=== PATIENT | female | born 1945 | race African-American/Black ===

== ENCOUNTER 2021-02-16 17:57 | Inpatient (IN) | payer MEDICARE, SELFPAY ==
[2021-02-16] VITALS (9 sets, daily range): BP systolic 115–125; BP diastolic 79–86; PULSE 52–78; RESP 14–18; TEMP 36–36.6; O2SAT 100; BMI 23.6
--- NOTE | ~2021-02-16 | XR_ITS ---
EXAMINATION: XR chest ET placement INDICATION: Endotracheal tube placement TECHNIQUE: Portable AP chest at 1810 hours COMPARISON: None available FINDINGS: An endotracheal tube ends approximately 6.5 cm above the pillo. The nasogastric tube is fo llowed as far as the stomach. Its tip is beyond the inferior margin of the radiograph. The lungs are free of acute opacities. No pleural effusion or pneumothorax is identified. The cardiomediastinal dwayne houette is normal. IMPRESSION: 1. Endotracheal tube approximately 6.5 cm above the pillo. No acute cardiopulmonary abnormality. Reviewed, dictated and finalized at location A. IMPRESSION: 1. Endotracheal tube approximately 6.5 cm above the pillo. No acute cardiopulm onary abnormality.
--- NOTE | ~2021-02-16 | XR_ITS ---
EXAMINATION: XR chest 1V portable 02/19/2021 05:33 INDICATION: Shortness of breath PROCEDURE: AP portable chest COMPARISON: Comparison to multiple prior studies sequentially, with oldest reviewed study dated 02/16. FINDINGS: The lungs are clear. The lungs are hyperinflated which is consistent with, but not diagnost ic of chronic obstructive pulmonary disease. The cardiomediastinal silhouette is within normal limits. There are no pleural effusions. There is no pneumothorax suspected. Interval removal of endotracheal and NG tubes. IMPRESSION: 1: NO ACUTE CARDIOPULMONARY DISEASE. Reviewed, dictated and finalized at location A.
--- NOTE | ~2021-02-16 | XR_ITS ---
EXAMINATION: XR chest 1V portable DATE: 02/17/2021 05:42 INDICATION: Intubation TECHNIQUE: frontal view of the chest was obtained. COMPARISON: Chest radiograph dated 02/16/2021 FINDINGS: Endotracheal tube tip 4.3 cm above the pillo. Nasogastric tube extends below the left hemidiaphragm with distal tip collimated off the study. Persistent mild linear discoid atelectasis/scarring at the medial left lung base. Skinfold projects o fabiana the lateral left lung. No pulmonary edema, pleural effusion or pneumothorax. The cardiomediastina l silhouette is normal. IMPRESSION: 1. No acute cardiopulmonary disease. Reviewed, dictated and finalized at location A.
--- NOTE | ~2021-02-16 | XR_ITS ---
EXAMINATION: XR chest 1V portable DATE: 02/18/2021 05:51 INDICATION: Intubation TECHNIQUE: frontal view of the chest was obtained. COMPARISON: Chest radiograph dated 02/17/2021 FINDINGS: Endotracheal tube tip 4.6 cm above the pillo. Nasogastric tube extends below the left hemidiaphragm with distal tip collimated off the study. Slight increase in prominence of the pulmonary vasculature without mei pulmonary edema. Mild streak y atelectasis at the bilateral lower lung zones. No other airspace opacities, pleural effusion or pne umothorax. The cardiomediastinal silhouette is normal. IMPRESSION: 1. Pulmonary vascular congestion without pulmonary edema. Reviewed, dictated and finalized at location A.
--- NOTE | ~2021-02-16 | XR_ITS ---
EXAMINATION: XR abdomen NG/feed tube insert INDICATION: Nasogastric tube insertion TECHNIQUE: Portable AP KUB-NG at 1811 hours COMPARISON: None available FINDINGS: The tip of the nasogastric tube is in the stomach. The proximal side port is at the gastroe sophageal junction. The visualized lung bases are clear. The bowel gas pattern is nonspecific. IMPRESSION: 1. Tip of the nasogastric tube in the stomach with proximal side port at the gastroesophageal junctio n. Tube can be safely advanced 2 to 3 cm. Reviewed, dictated and finalized at location A. IMPRESSION: 1. Tip of the nasogastric tube in the stomach with proximal side port at the ga stroesophageal junction. Tube can be safely advanced 2 to 3 cm.
--- NOTE | ~2021-02-16 | XR_ITS ---
EXAMINATION: XR abdomen NG/feed tube rechec INDICATION: Nasogastric tube advancement TECHNIQUE: Portable AP KUB-NG at 2048 hours COMPARISON: 1811 hours FINDINGS: The nasogastric tube has been advanced. Both the tip and proximal side port are now within the stomach. There is otherwise no significant change. The lung bases are clear. IMPRESSION: 1. Nasogastric tube advanced in adequate position. Reviewed, dictated and finalized at location A.
--- NOTE | ~2021-02-16 | XR_ITS ---
EXAMINATION: XR chest ET placement INDICATION: Endotracheal tube advancement TECHNIQUE: Portable AP chest at 2047 hours COMPARISON: 1810 hours FINDINGS: The endotracheal tube has been advanced and ends approximately 3.5 cm above the pillo. The nasogastric tube is followed as far as the stomach. Its tip is beyond the inferior margin of the rad iograph. The lungs are free of acute opacities. There is no pleural effusion or pneumothorax. The car diomediastinal silhouette is normal. IMPRESSION: 1. Endotracheal tube advanced now ending approximately 3.5 cm above the pillo. Reviewed, dictated and finalized at location A.
--- NOTE | 2021-02-16 18:06 | PM.IMHP ---
H&P: HPI History of Present Illness Date/Time: 02/16/21 18:06 this is a 75-year-old female patient who was a direct admit [facility]. 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 The patient ate some strawberries today according to the report and is also on an KIMBERLY-inhibitor. The patient developed pulmonary edema. The patient was given Decadron, Benadryl, epinephrine, and Pepcid in the emergency room. Due to her angioedema the patient was intubated with a 7.0 ET tube at outside facility. She was sedated with etomidate, succinylcholine, Versed and sedated with propofol. The patient was initially set on a ventilator at tidal volume of 400 rate of 18 and PEEP of 5 with FiO2 of 50. When I spoke with the ED physician he stated that he was going to trend the FiO2 down to 30% and turned the rate down to 16. The ET tube was noted to be 24 at the lip. Ventilator mode was assist control. The patient complained of swelling to her tongue upon awakening this morning she denied any shortness of breath and was having a small amount of drooling patient reports that she ate strawberries last night which is listed as 1 of her allergies. She also takes lisinopril. Last dose of lisinopril was last night. The patient had been intubated at outside facility due to the amount of edema to her lips and tongue and possible airway compromise. I received report from Dr. Newsome at [facility]. Patient had an EKG that was normal sinus rhythm. The patient is being admitted to inpatient services into ICU. The city mail carrier had previously been notified by the ER physician at the outside facility. The date of service is 02/16/2021. 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 The patient is a full code. She is and listed as unemployed Smoking status: Unknown if ever smoked Alcohol intake: unknown Substance use: unknown Substance use type: unknown Other substance usage details: sedated on ventilator on arrival to hospital Spiritual care concerns: No Meds Vital Signs Vital Signs - 24 hr 02/16/21 17:56 Pulse Rate 62 Pulse Oximetry 100 Exam Const: General: cooperative, comfortable, no acute distress, alert, awake (She was initially awake when she came to ICU) and Physically active Nutritional Appearance: average body habitus Orientation/consciousness: oriented to person, oriented to place, oriented to time, patient oriented x3 and Other orientation findings (Patient was initially awake when she came to ICU intubated ) Limitations: no limitations HENMT: Head: normal to inspection, No palpable skull fracture present and normocephalic Ears: hearing grossly normal bilaterally and external ears normal General nose exam: Normal external nose present Eyes: Other: Right eye surgically extracted area healed well Neck: Neck: normal visual inspection and supple Chest: Chest palpation & inspection: normal inspection of the chest Resp: Effort & Inspection: normal respiratory effort Auscultation: clear to auscultation bilaterally Percussion: percussion normal Cardio: Palpation: normal PMI Rate: regular rate Rhythm: regular rhythm Heart sounds: S1 normal heart sound present and S2 normal heart soun
--- NOTE | 2021-02-16 18:38 | PC.NURSE ---
This patient, Charisse Magana, was admitted to Intensive Care Unit-3. Patient/family oriented to hospital policies and general routines including ID bracelet, bed and alarms, visiting hours, pain management, procedures, bathroom and other care routines, personal items, smoking policy, room service/diet, and visiting hours. Information on how to activate the Rapid Response Team has been discussed. Patient/Family are encouraged to report perceived risks to care and to ask questions if they do not understand what they are told or what they should do.
[2021-02-16 18:45] LABS: Alveolar/Arterial O2 Gradient 43.8 mmHg; Base Excess ABG -5.6 mEq/l (+/-2.0); Device VENTILATOR; Fractional Inspired Oxygen 30 %; Modified Allen's Test Pass; Oxygen Content ABG 16.6 %vol (16.0-22.0); Oxygen Saturation ABG 98.5 % (95.0-100.0); Oxyhemoglobin 96.8 % THb (90.0-100.0); PO2 ABG 130.2 mmHg (80.0-100.0); PO2 FiO2 Ratio Arterial Blood 4.34 %; Site Drawn RIGHT RADIAL; pH ABG 7.364 (7.350-7.450)
[2021-02-16 18:46] LABS: Arterial Blood Gas PEEP 5 cmH2O; Arterial Blood Gas Tidal Volume 400 ml; Arterial Blood Gas Vent Mode CMV; Arterial Blood Gas Ventilator rate 14 /MIN
[2021-02-16 19:18] LABS: Lactic Acid Reflex 1.5 mmol/L (0.7-2.1); Magnesium 1.6 mg/dL (1.6-2.3)
[2021-02-16 19:20] LABS: Hemoglobin A1C 5.4 % (<5.7)
[2021-02-16 19:42] LABS: Add Urine Microscopic? YES; Appearance Urine Clear (Clear); Bilirubin Urine Negative (Negative); Blood Urine 3+ (Negative); Color Urine Yellow (Yellow); Glucose Urine UA Negative (Negative); Ketones Urine Negative (Negative); Leukocyte Esterase Ur Negative LEU/UL (Negative); Mucus Urine Rare /lpf; Nitrate Urine Negative (Negative); Protein Urine 1+ mg/dL (Negative); RBC Urine 21-50 /hpf (0-2); Specific Grav Ur 1.014 (1.001-1.035); Squamous Epithelial Cell Urine Rare /hpf (Few); Urobilinogen Urine Negative mg/dL (<2.0); WBC Urine 0-3 /hpf
[2021-02-16] MEDS: PROPOFOL IV EMULSION 100 ML 17.4 MG IV CONT (20:28)
[2021-02-16] MEDS: SODIUM CHLORIDE 0.9% IV 1,000 ML 100 ML IV CONT (20:28)
[2021-02-16] MEDS: MINERAL OIL/WHITE PETROLATUM OINTMENT 1 APPLIC EACH EYE (20:32)
[2021-02-16] MEDS: FAMOTIDINE 20 MG/2 ML VIAL IV PUSH (21:57)
[2021-02-16 23:59] LABS: Glucose Point of Care 95 mg/dl (65-105)
[2021-02-17] VITALS (30 sets, daily range): BP systolic 108–156; BP diastolic 69–90; PULSE 45–113; RESP 12–17; TEMP 35.9–37.2; O2SAT 98–100; BMI 23.1
[2021-02-17] MEDS: PROPOFOL IV EMULSION 100 ML 10.88 MG IV CONT (03:20)
[2021-02-17 04:32] LABS: Alveolar/Arterial O2 Gradient 51.2 mmHg; Base Excess ABG -5.3 mEq/l (+/-2.0); Fractional Inspired Oxygen 30 %; HCO3 ABG 18.6 mEq/l (22.0-26.0); Oxygen Content ABG 17.3 %vol (16.0-22.0); Oxygen Saturation ABG 98.5 % (95.0-100.0); Oxyhemoglobin 97.1 % THb (90.0-100.0); PCO2 ABG 31.2 mmHg (35.0-45.0); Total Hemoglobin 12.5 g/dL (12.0-18.0); pH ABG 7.393 (7.350-7.450)
[2021-02-17 04:34] LABS: Arterial Blood Gas Ventilator rate 14 /MIN; Device VENTILATOR; Modified Allen's Test Pass; Site Drawn LEFT RADIAL
[2021-02-17 04:35] LABS: Arterial Blood Gas PEEP 5 cmH2O; Arterial Blood Gas Tidal Volume 400 ml; Arterial Blood Gas Vent Mode CMV
[2021-02-17 04:54] LABS: Basophils Percent Auto 0.1 % (0.2-1.2); Hematocrit 40.1 % (37.0-47.0); Hemoglobin 12.2 g/dL (12.0-15.0); Immature Granulocyte Absolute 0.05 K/mm3 (0.00-0.031); Immature Granulocyte Percent A 0.7 % (0-0.5); Lymphocytes Absolute Auto 0.81 K/mm3 (0.9-3.2); Lymphocytes Percent Auto 10.9 % (18.3-44.2); Mean Corpuscular HGB Conc 30.4 g/dl (32-36); Mean Corpuscular Hemoglobin 30.4 pg (26-34); Mean Platelet Volume 10.5 fl (7.4-10.4); Monocytes Absolute Auto 0.3 K/mm3 (0.1-0.6); Neutrophils Absolute Auto 6.3 K/mm3 (1.3-6.7); Neutrophils Percent Auto 84.3 % (45.5-73.1); Platelet Count Result 309 k/mm3 (150-375); Red Blood Count 4.01 M/mm3 (4.2-5.4); Red Cell Distribution Width 12.8 % (11.5-14.5); White Blood Count 7.4 K/mm3 (4.5-10.0)
[2021-02-17 05:16] LABS: Alanine Aminotransferase 13 U/L (4-35); Albumin Level 4.4 g/dL (3.5-5.1); Alkaline Phosphatase 61 U/L (38-126); Anion Gap 13 mmol/L (8-16); Aspartate Amino Transferase 31 U/L (14-36); Bilirubin,Total 0.4 mg/dL (0.2-1.3); Blood Urea Nitrogen 11 mg/dL (7-17); Calcium 9.3 mg/dL (8.4-10.2); Carbon Dioxide 17 mmol/L (22-30); Chloride 114 mmol/L (98-107); Estimated CRCL calculation 54 ml/min; Estimated Glomerular Filt Rate > 60; Glucose 93 mg/dL (65-110); Magnesium 1.7 mg/dL (1.6-2.3); Potassium 4.3 mmol/L (3.4-5.0); Sodium 144 mmol/L (137-145)
[2021-02-17] MEDS: methylPREDNISolone SOD SUCC 125 MG VIAL 80 MG IV PUSH ×2 (05:21)
[2021-02-17] MEDS: SODIUM CHLORIDE 0.9% IV 1,000 ML 100 ML IV CONT (06:39)
[2021-02-17] MEDS: diphenhydrAMINE HCl INJ 50 MG/ML VIAL 25 MG IV PUSH ×5 (08:20→23:33)
[2021-02-17] MEDS: FAMOTIDINE 20 MG/2 ML VIAL IV PUSH ×2 (08:21→20:53)
[2021-02-17] MEDS: ENOXAPARIN 40 MG/0.4 ML SYRINGE SUB-Q (08:21)
[2021-02-17] MEDS: MINERAL OIL/WHITE PETROLATUM OINTMENT 1 APPLIC EACH EYE ×2 (08:21→20:54)
[2021-02-17] MEDS: hydrALAZINE HCL 20 MG/ML VIAL 10 MG IV PUSH (09:18)
--- NOTE | 2021-02-17 09:18 | WPDCNINT ---
Assessment and Plan Assessment and plan (1) Angioedema: Code(s): T78.3XXA - Angioneurotic edema, initial encounter Status: Acute Assessment and Plan: Angioedema likely related to strawberries and/or lisinopril. -patient was intubated for airway protection at the outside hospital, [facility]. -remains on 5 of PEEP and 30% FiO2 on CMV mode of ventilation -patient does have a cuff leak but lips are still swollen -the tongue does not seem to be swollen but it lies within the teeth -will decrease Solu-Medrol to 60 mg IV q.6 hours -continue Pepcid, and will schedule Benadryl - (2) DM2 (diabetes mellitus, type 2): Code(s): E11.9 - Type 2 diabetes mellitus without complications Status: Chronic Assessment and Plan: Sliding scale insulin Accu-Cheks (3) Hypertension: Code(s): I10 - Essential (primary) hypertension Status: Chronic Assessment and Plan: Blood pressures are stable, p.r.n. hydralazine (4) Hyperlipidemia: Code(s): E78.5 - Hyperlipidemia, unspecified Status: Chronic Assessment and Plan: Will restart simvastatin once extubated (5) DVT prophylaxis: Code(s): Z29.9 - Encounter for prophylactic measures, unspecified Status: Acute Assessment and Plan: DVT prophylaxis: Lovenox SQ Additional Plan Code status: Full code Critical care time spent: 44 minutes This dictation may have been done utilizing a voice recognition system. Attempts have been made to correct errors. However, there may be uncorrected grammatical, spelling, and recognition errors present. Due to a high probability of clinically significant, life threatening deterioration, the patient required my highest level of preparedness to intervene emergently and I personally spent this critical care time directly and personally managing the patient. This critical care time included obtaining a history; examining the patient; pulse oximetry; ordering and review of studies; arranging urgent treatment with development of a management plan; evaluation of patient's response to treatment; frequent reassessment; and discussions with other providers. It was exclusive of separately billable procedures and treating other patients and teaching time. 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 At the outside hospital she stated that she ate some strawberries the night prior to admission, patient is also on lisinopril for her hypertension which she has been taking regularly. In the ER at the outside hospital patient was noted to have swollen lips and tongue, she was given Benadryl, epinephrine, Pepcid and Decadron despite which did done continued to show swell, patient was intubated for airway protection after discussion with the family and patient. Patient was on peep of 5 and 30% FiO2, chest x-ray was clear, hemodynamically patient was stable. According the ER physician at the outside hospital the intubation was uneventful. Patient was transferred to the ICU for further management Patient seen examined the ICU this morning, is intubated, on CMV mode of ventilation, peep of 5, 30% FiO2. Patient is on propofol, opens her eyes to name, follows simple commands in all extremities. Lips are swollen but done does not seem to be swollen as is as well placed within the teeth. Patient does have a cuff leak. Urine ou
[2021-02-17] MEDS: LACTATED RINGERS 1,000 ML 75 ML IV CONT ×2 (10:03→23:28)
--- NOTE | 2021-02-17 10:47 | PCDIET ---
MD order for Glucerna 1.2 tube feedings. Recommended goal rate of 40mL/hr which will provide 1056kcal (1343kcal with Propofol at current rate), 52g protein and 708mL free water over 22 hours/day. Suggest 30mL water flush every 4 hours. Verbal order obtained.
[2021-02-17] MEDS: PROPOFOL IV EMULSION 100 ML 13.05 MG IV CONT (11:07)
[2021-02-17] MEDS: methylPREDNISolone SOD SUCC 125 MG VIAL 60 MG IV PUSH ×3 (12:42→23:33)
[2021-02-17 12:47] LABS: Glucose Point of Care 127 mg/dl (65-105)
[2021-02-17] MEDS: PROPOFOL IV EMULSION 100 ML 15.23 MG IV CONT (17:22)
[2021-02-17 17:30] LABS: Glucose Point of Care 170 mg/dl (65-105)
[2021-02-18] VITALS (27 sets, daily range): BP systolic 130–152; BP diastolic 70–83; PULSE 39–66; RESP 10–18; TEMP 36.5–37; O2SAT 95–100
[2021-02-18] LABS: Glucose Point of Care 162 mg/dl (65-105)
[2021-02-18] MEDS: PROPOFOL IV EMULSION 100 ML 15.23 MG IV CONT (00:44)
[2021-02-18] MEDS: diphenhydrAMINE HCl INJ 50 MG/ML VIAL 25 MG IV PUSH ×2 (04:04→08:42)
[2021-02-18 04:26] LABS: Hematocrit 32.4 % (37.0-47.0); Hemoglobin 10.6 g/dL (12.0-15.0); Mean Corpuscular HGB Conc 32.7 g/dl (32-36); Mean Corpuscular Hemoglobin 30.3 pg (26-34); Mean Corpuscular Volume 92.6 fl (80-100); Mean Platelet Volume 10.7 fl (7.4-10.4); Platelet Count Result 291 k/mm3 (150-375); Red Cell Distribution Width 13.1 % (11.5-14.5); White Blood Count 7.6 K/mm3 (4.5-10.0)
[2021-02-18 04:55] LABS: Alveolar/Arterial O2 Gradient 52.4 mmHg; Base Excess ABG -3.3 mEq/l (+/-2.0); Carboxyhemoglobin 0.2 % THb (0-2.0); Fractional Inspired Oxygen 30 %; HCO3 ABG 18.3 mEq/l (22.0-26.0); Methemoglobin ABG 0.4 %THb (0-1.5); Oxygen Content ABG 15.8 %vol (16.0-22.0); Oxyhemoglobin 97.1 % THb (90.0-100.0); PO2 ABG 133.9 mmHg (80.0-100.0); PO2 FiO2 Ratio Arterial Blood 4.46 %; Reduced Hemoglobin 2.3 %THb (0-5.0); Total Hemoglobin 11.4 g/dL (12.0-18.0)
[2021-02-18 04:57] LABS: Arterial Blood Gas PEEP 5 cmH2O; Arterial Blood Gas Vent Mode ASV; Device VENTILATOR; Modified Allen's Test Pass; PCO2 ABG 23.5 mmHg (35.0-45.0); Site Drawn RIGHT RADIAL; pH ABG 7.509 (7.350-7.450)
[2021-02-18 04:58] LABS: Alanine Aminotransferase 11 U/L (4-35); Albumin Level 3.4 g/dL (3.5-5.1); Alkaline Phosphatase 53 U/L (38-126); Anion Gap 8 mmol/L (8-16); Aspartate Amino Transferase 21 U/L (14-36); Bilirubin,Total 0.3 mg/dL (0.2-1.3); Blood Urea Nitrogen 23 mg/dL (7-17); Calcium 8.8 mg/dL (8.4-10.2); Carbon Dioxide 19 mmol/L (22-30); Chloride 113 mmol/L (98-107); Estimated CRCL calculation 44 ml/min; Estimated Glomerular Filt Rate > 60; Glucose 180 mg/dL (65-110); Magnesium 1.8 mg/dL (1.6-2.3); Phosphorus 3.2 mg/dL (2.5-4.5); Potassium 3.7 mmol/L (3.4-5.0); Sodium 140 mmol/L (137-145)
[2021-02-18] MEDS: methylPREDNISolone SOD SUCC 125 MG VIAL 60 MG IV PUSH ×3 (05:41→19:27)
[2021-02-18] MEDS: PROPOFOL IV EMULSION 100 ML 8.7 MG IV CONT (06:54)
[2021-02-18] MEDS: FUROSEMIDE INJ 40 MG/4 ML VIAL IV PUSH (08:42)
[2021-02-18] MEDS: FAMOTIDINE 20 MG/2 ML VIAL IV PUSH ×2 (08:43→21:31)
[2021-02-18] MEDS: ENOXAPARIN 40 MG/0.4 ML SYRINGE SUB-Q (08:43)
[2021-02-18] MEDS: MINERAL OIL/WHITE PETROLATUM OINTMENT 1 APPLIC EACH EYE (08:45)
[2021-02-18] MEDS: LORATADINE 10 MG TABLET PO (11:19)
--- NOTE | 2021-02-18 11:21 | WPDINTPN ---
Progress Note: A&P Assessment and Plan (1) Angioedema: Code(s): T78.3XXA - Angioneurotic edema, initial encounter Status: Acute Assessment and Plan: Angioedema likely related to strawberries and/or lisinopril. -patient was intubated for airway protection at the outside hospital, [facility]. -remains on 5 of PEEP and 30% FiO2 ASV mode of ventilation -patient does have a cuff leak -the tongue does not seem to be swollen but it lies within the teeth -will decrease Solu-Medrol -continue Pepcid, discontinue Benadryl and added loratadine -discontinue propofol, place patient on SBT and evaluate for extubation (2) DM2 (diabetes mellitus, type 2): Code(s): E11.9 - Type 2 diabetes mellitus without complications Status: Chronic Assessment and Plan: Sliding scale insulin Accu-Cheks (3) Hypertension: Code(s): I10 - Essential (primary) hypertension Status: Chronic Assessment and Plan: Blood pressures are stable, p.r.n. hydralazine (4) Hyperlipidemia: Code(s): E78.5 - Hyperlipidemia, unspecified Status: Chronic Assessment and Plan: Will restart simvastatin once extubated (5) DVT prophylaxis: Code(s): Z29.9 - Encounter for prophylactic measures, unspecified Status: Acute Assessment and Plan: DVT prophylaxis: Lovenox SQ Additional Plan Code status: Full code Critical care time spent: 33 minutes This dictation may have been done utilizing a voice recognition system. Attempts have been made to correct errors. However, there may be uncorrected grammatical, spelling, and recognition errors present. Due to a high probability of clinically significant, life threatening deterioration, the patient required my highest level of preparedness to intervene emergently and I personally spent this critical care time directly and personally managing the patient. This critical care time included obtaining a history; examining the patient; pulse oximetry; ordering and review of studies; arranging urgent treatment with development of a management plan; evaluation of patient's response to treatment; frequent reassessment; and discussions with other providers. It was exclusive of separately billable procedures and treating other patients and teaching time. Please see Assessment and Plan section and the rest of the note for further information on patient assessment and treatment Subjective Date/time seen: 02/18/21 11:21 Interval history: Reason for consult: ANGIOEDEMA, ACUTE RESPIRATORY FAILURE, intubated on 02/16/2021 at the outside hospital 02/18/2021: Pt remains intubated on ASV 30% fio2, peep 5. Pt on propofol, awake, alert and follows commands. tolertaing tube feeds. hemodynamically stable. Pt has a cuff leak. Lips still swollen, done is within the Teeth and cannot be evaluated but does not look swollen Review of Systems Review of Systems: ROS unobtainable: Yes unobtainable due to endotracheal tube Exam Const: General: comfortable and no acute distress HENMT: Other: ETT in place Lips are swollen but tongue does not seem to be swollen Eyes: Sclera: sclerae normal Pupils: Equal, round and reactive pupils present Neck: Neck: supple Thyroid: thyroid normal Lymphatic: lymphadenopathy not noted Resp: Effort & Inspection: normal respiratory effort Auscultation: clear to auscultation bilaterally Cardio: Rate: regular rate Rhythm: regular rhythm GI: Inspection: non-distended GI Palp: Yes Soft to palpation and No Tenderness to palpation present (GI) Auscultation: normal bowel sounds : Other: Kenyon catheter in place Urinary Catheter: Urinary Catheter: patent and draining and urine clear Skin: General skin exam: normal color and no rashes or lesions noted Neuro: Cranial nerves: Yes Equal, round and reactive pupils present Other: Patient is intubated, sedated with propofol, opens her eyes to name, nods to questions, follows simple command
[2021-02-18 11:33] LABS: Glucose Point of Care 130 mg/dl (65-105)
--- NOTE | 2021-02-18 12:42 | PCDIET ---
Nutrition Follow-Up Complete: Nutrition Diagnosis: Inadequate oral intake related to oral intubation as evidenced by NPO diet. Nutrition Goal: Patient to meet estimated nutritional needs. Goal in progress. Tube feedings on hold for anticipated extubation. If unable to extubate, recommend increasing to 50mL/hr Glucerna 1.2 since patient is no longer on Propofol. Last recorded weight is 71.8 kg which is stable. Bowel Motility: No documented BM as of yet. Labs Reviewed: RBC (3.50), Hgb (10.6), Hct (32.4), Glu (180), BUN (23), Cl (113), Alb (3.4) Meds Noted: Pepcid, Apresoline, Solu Medrol Additional Notes: No documented skin breakdown. Follow up every 3 days. Follow daily in ICU rounds.
[2021-02-18 13:39] LABS: Alveolar/Arterial O2 Gradient 74.4 mmHg; Base Excess ABG -0.2 mEq/l (+/-2.0); Fractional Inspired Oxygen 30 %; HCO3 ABG 20.6 mEq/l (22.0-26.0); Oxygen Content ABG 17.3 %vol (16.0-22.0); Oxygen Saturation ABG 98.6 % (95.0-100.0); PO2 ABG 111.3 mmHg (80.0-100.0); PO2 FiO2 Ratio Arterial Blood 3.71 %; Total Hemoglobin 12.6 g/dL (12.0-18.0)
[2021-02-18 13:41] LABS: Device VENTILATOR; Modified Allen's Test Pass; Site Drawn RIGHT RADIAL; pH ABG 7.552 (7.350-7.450)
[2021-02-18 13:42] LABS: Arterial Blood Gas PEEP 5 cmH2O; Arterial Blood Gas Pressure Support 8 cmH2O; Arterial Blood Gas Vent Mode SPONTANEOUS
[2021-02-18 18:26] LABS: Glucose Point of Care 130 mg/dl (65-105)
[2021-02-19] VITALS (14 sets, daily range): BP systolic 124–149; BP diastolic 67–82; PULSE 38–66; RESP 14–16; TEMP 36.2–36.6; O2SAT 96–100
[2021-02-19] MEDS: methylPREDNISolone SOD SUCC 125 MG VIAL 60 MG IV PUSH ×2 (00:21→05:49)
[2021-02-19 00:27] LABS: Glucose Point of Care 134 mg/dl (65-105)
[2021-02-19 04:52] LABS: Hematocrit 32.4 % (37.0-47.0); Hemoglobin 10.6 g/dL (12.0-15.0); Mean Corpuscular HGB Conc 32.7 g/dl (32-36); Mean Corpuscular Hemoglobin 30.4 pg (26-34); Mean Corpuscular Volume 92.8 fl (80-100); Platelet Count Result 268 k/mm3 (150-375); Red Blood Count 3.49 M/mm3 (4.2-5.4); Red Cell Distribution Width 13.2 % (11.5-14.5); White Blood Count 8.2 K/mm3 (4.5-10.0)
[2021-02-19 05:01] LABS: Alanine Aminotransferase 9 U/L (4-35); Albumin Level 3.4 g/dL (3.5-5.1); Alkaline Phosphatase 45 U/L (38-126); Anion Gap 8 mmol/L (8-16); Aspartate Amino Transferase 18 U/L (14-36); Bilirubin,Total 0.1 mg/dL (0.2-1.3); Blood Urea Nitrogen 31 mg/dL (7-17); Calcium 8.9 mg/dL (8.4-10.2); Carbon Dioxide 24 mmol/L (22-30); Chloride 111 mmol/L (98-107); Estimated CRCL calculation 40 ml/min; Estimated Glomerular Filt Rate 59; Glucose 148 mg/dL (65-110); Phosphorus 4.2 mg/dL (2.5-4.5); Potassium 3.4 mmol/L (3.4-5.0); Sodium 143 mmol/L (137-145)
[2021-02-19 05:56] LABS: Glucose Point of Care 125 mg/dl (65-105)
--- NOTE | 2021-02-19 07:47 | ECHO_ITS ---
Patient Info Name: Charisse Magana Age: 75 years : 1945 Gender: Female Ht: 69 in Wt: 158 lbs BSA: 1.87 m2 HR: 44 bpm BP: 149 Heart Rhythm: Bradycardia, Sinus Rhythm Technical Quality: Good Exam Date: 02/19/2021 8:45 AM Exam Location: [facility] Patient Status: Inpatient Admit Date: 02/16/2021 Staff Ordering Physician: Kenna Bailey MD Supervisor Lead Refinery: Jes Veliz RDCS Attending Provider: Leonard Schreiber MD Referring Physician: Leo PRINCE; Exam Type: CA echo doppler color flow Study Info Indications R00.1 - Bradycardia, unspecified Complete two-dimensional, color flow and Doppler transthoracic echocardiogram is performed. Summary 1. Complete two-dimensional, color flow and Doppler transthoracic echocardiogram is performed. 2. Normal left ventricular size with septal hypertrophy. There is hyperdynamic left ventricular systolic function with ejection fraction greater than 70%. No segmental wall motion abnormalities. Grade 2 diastolic dysfunction is seen. 3. Dilated inferior vena cava with <50% collapse upon inspiration consistent with elevated right atrial pressure, 10 mmHg. 4. Mild to moderate eccentric mitral regurgitation. 5. Calcified aortic. 6. Sinus bradycardia. Left Ventricle Left ventricular chamber dimension is normal. Left ventricular systolic function is hyperdynamic, estimated at >70%. There is mild asymmetric septal increased left ventricular wall thickness. Left ventricular septal wall motion is normal. The left ventricular diastolic function is grade II diastolic dysfunction. Right Ventricle Right ventricular chamber dimension is normal. Right ventricular systolic function is normal. Left Atria Left atrial chamber dimension is normal. Right Atria Right atrial chamber dimension is normal. Aortic Valve The aortic valve is trileaflet. There is no aortic valve sclerosis. There is no aortic valve stenosis. There is trace aortic valve regurgitation. Pulmonic Valve The pulmonic valve is normal. There is no pulmonic valve stenosis. There is no pulmonic regurgitation. Mitral Valve The mitral valve has normal leaflets. There is no mitral valve stenosis. There is mild to moderate mitral valve regurgitation. Tricuspid Valve The tricuspid valve leaflets are normal. There is no significant tricuspid valve stenosis. There is trace tricuspid valve regurgitation. No pulmonary hypertension, estimated pulmonary arterial systolic pressure is 13 mmHg. Pericardium/Pleural The pericardium appears normal. There is no pericardial effusion. Inferior Vena Cava Dilated inferior vena cava with <50% collapse upon inspiration consistent with elevated right atrial pressure, 10 mmHg. Aorta The aortic root size at the sinus of Valsalva is normal. The prox ascending aorta size is normal. There is mild aortic atherosclerosis. Left Ventricular Outflow Tract Name Value Normal LVOT 2D LVOT Diameter 1.9 cm LVOT Doppler LVOT Peak Gradient 8 mmHg LVOT Mean Gradient 3 mmHg LVOT VTI
--- NOTE | 2021-02-19 07:47 | ECG_ITS ---
Measurements Intervals Van Rate: 42 P: 61 AZ: 170 QRS: 26 QRSD: 77 T: 61 QT: 554 QTc: 465 Interpretive Statements SINUS BRADYCARDIA PROLONGED QT INTERVAL ABNORMAL ECG Electronically Signed On 02-19-2021 8:44:31 CDT by Alexey Mcconnell D.O.
[2021-02-19] MEDS: ENOXAPARIN 40 MG/0.4 ML SYRINGE SUB-Q (08:21)
[2021-02-19] MEDS: FAMOTIDINE 20 MG/2 ML VIAL IV PUSH ×2 (08:21→19:52)
[2021-02-19] MEDS: LORATADINE 10 MG TABLET PO (08:21)
--- NOTE | 2021-02-19 09:07 | PM.CNCAR ---
Assessment and Plan Assessment and plan (1) Bradycardia: Code(s): R00.1 - Bradycardia, unspecified Status: Acute Assessment and Plan: Patient has developed progressive bradycardia over the last few days, off home medications that might be contributing such as propofol etc.. No history of bradycardia. Asymptomatic Echo pending Heart rate increases with light activity This bradycardia is likely a transient phenomenon. Recommend that we increase activity and see how she does. Discussed the possibility of a temporary or permanent pacemaker if she becomes symptomatic. Increase activity, okay to transfer to IMU (2) Angioedema: Code(s): T78.3XXA - Angioneurotic edema, initial encounter Status: Acute Assessment and Plan: Secondary to lisinopril versus strawberries, required intubation. Resolved. Patient aware she should not take lisinopril or eat strawberries any more. (3) Hypertension: Code(s): I10 - Essential (primary) hypertension Status: Chronic Assessment and Plan: Off all medications now, with controlled blood pressure at rest but takes nifedipine at home. Will resume prior to discharge. History of Present Illness History of Present Illness Consult date/time: 02/19/21 09:07 Requesting physician: Kenna Bailey MD Consult reason: Other (Bradycardia) Reason For Visit: angioedema Narrative: Charisse Magana is a 75-year-old female whom I was asked to see at the request of Dr. Norma Newton for my advice and opinion regarding her bradycardia in consultation. The patient presented to [facility] Room 02/16/2021 with angioedema after eating strawberries and her usual lisinopril which did not respond to usual measures, and required intubation. Records reviewed. EKG done 02/16/2021 shows sinus rhythm rate 97, no ischemia. CXR clear. She was transferred to [facility] and extubated yesterday. Her heart rate was initially 70-100 beats per minute but starting on February 17 she became bradycardic with heart rates in the 50s, and yesterday heart rate was generally in the 40s to 50s. Last night her heart rate was usually in the upper 40s, but occasionally in the upper 30's. THe pt has a h/o HTN, DM and HLD but no heart disease. No h/o bradycardia. Once had a dizzy spell 3 months ago after a bowel movement and she had to lean against a wall to recover. Can go shopping, and do housework and walk up stairs w/o SOB or CP, but occ gets tired and needs to rest. Note from the patient's primary care provider, Davina Zhao NP, reviewed from 01/12/2021. Blood pressure is 114/16 pulse was 89. No history of thyroid disease. . 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 ENT: Reports Normal hearing present, Denies epistaxis and Reports nasal discharge (seasonal allergies) Cardiovascular: Cardiovascular: Denies chest pain, Reports pedal edema (occ.), Reports lightheadedness (one episode 3 months ago) and Denies palpitations Respiratory: Respiratory: Denies dyspnea and Denies dyspnea on exertion Gastrointestinal: Gastrointestinal: Denies abdominal pain Genitourinary: Genitourinary: Denies dysuria Musculoskeletal: Musculoskeletal: Reports no additional musculoskeletal complaints Integumentary/Breasts: Skin/Breast: Reports system reviewed and no additional complaints, except as docu and Denies rash Comments: upper lip still a little swollen Neurologic: Reports system reviewed and no additional complaints, except as documented Psychiatric: Psychiatric: Reports no additional psychiatric complaints PMFSH Past Medical History Medical History (Updated 02/19/21 @ 10:17 by Ester Herron MD) DM2 (diabetes mellitus, type 2) Hyperlipidemia Hypertension Surgical History Surgical History (Updated 02/19/21 @ 10:1
--- NOTE | 2021-02-19 11:13 | PCSTNOTE ---
Please refer to the Bedside Swallow Evaluation in the EMR. Please note, silent aspiration cannot be ruled out at bedside.
--- NOTE | 2021-02-19 11:30 | WPDINTPN ---
Progress Note: A&P Assessment and Plan (1) Bradycardia: Code(s): R00.1 - Bradycardia, unspecified Status: Acute Assessment and Plan: Patient bradycardic this morning, in the upper 30s and 40s -EKG showed sinus bradycardia, - patient is asymptomatic -appreciate cardiology evaluation recommendation. Possible 10 preop, and pacemaker if she becomes symptomatic. -heart rate improves with activity and this could be just a transient phenomenon -echocardiogram has been done, report is pending (2) Angioedema: Code(s): T78.3XXA - Angioneurotic edema, initial encounter Status: Acute Assessment and Plan: Angioedema likely related to strawberries and/or lisinopril. -patient was intubated for airway protection at the outside hospital, [facility]. -successfully extubated on 02/18/2021 -currently on 2 L nasal cannula -tongue and lip swelling has resolved -wean Solu-Medrol to off -continue Pepcid, continue loratadine -PT/OT (3) DM2 (diabetes mellitus, type 2): Code(s): E11.9 - Type 2 diabetes mellitus without complications Status: Chronic Assessment and Plan: Sliding scale insulin Accu-Cheks (4) Hypertension: Code(s): I10 - Essential (primary) hypertension Status: Chronic Assessment and Plan: Blood pressures are stable, p.r.n. hydralazine (5) Hyperlipidemia: Code(s): E78.5 - Hyperlipidemia, unspecified Status: Chronic Assessment and Plan: Will restart simvastatin (6) DVT prophylaxis: Code(s): Z29.9 - Encounter for prophylactic measures, unspecified Status: Acute Assessment and Plan: DVT prophylaxis: Lovenox SQ Additional Plan Code status: Full code Critical care time spent: 33 minutes This dictation may have been done utilizing a voice recognition system. Attempts have been made to correct errors. However, there may be uncorrected grammatical, spelling, and recognition errors present. Due to a high probability of clinically significant, life threatening deterioration, the patient required my highest level of preparedness to intervene emergently and I personally spent this critical care time directly and personally managing the patient. This critical care time included obtaining a history; examining the patient; pulse oximetry; ordering and review of studies; arranging urgent treatment with development of a management plan; evaluation of patient's response to treatment; frequent reassessment; and discussions with other providers. It was exclusive of separately billable procedures and treating other patients and teaching time. Please see Assessment and Plan section and the rest of the note for further information on patient assessment and treatment Subjective Date/time seen: 02/19/21 11:30 Interval history: Reason for consult: ANGIOEDEMA, ACUTE RESPIRATORY FAILURE, intubated on 02/16/2021 at the outside hospital 02/19/2021: Patient was successfully extubated yesterday. Remains on 2 L oxygen via nasal cannula. Patient is awake, alert, follows simple commands. Patient was bradycardic in the upper 30s and low 40s, EKG reveals sinus bradycardia. Denies any shortness of breath, chest pain, abdominal pain, nausea vomiting at this time. Urine output has been adequate, patient is afebrile. She has passed her bedside swallow test morning Review of Systems Review of Systems: ROS unobtainable: Yes unobtainable due to endotracheal tube Exam Const: General: comfortable and no acute distress HENMT: Mouth: Yes moist mucous membranes Other: Tongue and lip swelling has resolved Eyes: Sclera: sclerae normal Pupils: Equal, round and reactive pupils present Neck: Neck: supple Thyroid: thyroid normal Lymphatic: lymphadenopathy not noted Resp: Effort & Inspection: normal respiratory effort Auscultation: clear to auscultation bilaterally Cardio: Rate: regular rate Rhythm: regular rhythm GI: Inspection: non-dist
[2021-02-19 13:21] LABS: Glucose Point of Care 173 mg/dl (65-105)
[2021-02-19] MEDS: SIMVASTATIN 20 MG TABLET BY MOUTH (13:35)
[2021-02-19 17:26] LABS: Glucose Point of Care 179 mg/dl (65-105)
[2021-02-19] MEDS: methylPREDNISolone SOD SUCC 40 MG VIAL IV PUSH (18:35)
[2021-02-20] VITALS (10 sets, daily range): BP systolic 138–161; BP diastolic 74–82; PULSE 36–70; RESP 15–20; TEMP 35.6–36.5; O2SAT 96–100
[2021-02-20] MEDS: INSULIN ASPART (*BKC) 100 UNITS/ML SUB-Q
[2021-02-20 00:40] LABS: Glucose Point of Care 233 mg/dl (65-105)
--- NOTE | 2021-02-20 01:20 | PC.NURSE ---
This patient, Charisse Magana, was transferred to [ 201] on 02/20/21 at 0120. Personal belongings sent with patient. Report given to [Sonya RN ]. Appropriate documentation sent with patient.
[2021-02-20] MEDS: methylPREDNISolone SOD SUCC 40 MG VIAL IV PUSH (05:44)
[2021-02-20 05:54] LABS: Glucose Point of Care 124 mg/dl (65-105)
[2021-02-20 08:45] LABS: Glucose Point of Care 111 mg/dl (65-105)
[2021-02-20] MEDS: LORATADINE 10 MG TABLET PO (08:55)
[2021-02-20] MEDS: ENOXAPARIN 40 MG/0.4 ML SYRINGE SUB-Q (08:55)
[2021-02-20] MEDS: SIMVASTATIN 20 MG TABLET BY MOUTH (08:55)
[2021-02-20] MEDS: FAMOTIDINE 20 MG/2 ML VIAL IV PUSH (08:56)
--- NOTE | 2021-02-20 09:50 | PM.IMPN ---
Progress Note: A&P Additional Plan START OF DOCTOR JUANA?S PROGRESS NOTE Subjective: The patient voices no complaints at this time aside from constipation. She denies lightheadedness, dizziness, diaphoresis, palpitations, since rapid heartbeat, since your heartbeat, chest pain, dyspnea. I have explained to the patient her current medical condition plan of care and answered all questions Objective: General: -Alert -No acute distress -No dyspnea -No tachypnea Heart: -iRegular rate -Regular rhythm -No murmurs -No gallops -No rubs Lungs: -No wheeze -No rhonchi -No rales Abdomen: -Normal bowel sounds in all four quadrants -No rebound -No guarding -No tenderness Extremities: -2/4 pulse in all four extremities -No clubbing -No cyanosis -No edema Additional Details / Additional Findings / Exceptions / Miscellaneous: Pertinent Laboratory Results / Pertinent Radiology Results / Pertinent Diagnostic Results / Pertinent Vital Signs: Temp 96?, pulse 49, blood pressure 161/76 Assessment / Plan: And atelectasis with pulmonary edema with resultant respiratory failure resulting in intubation February 16, 2021, status post extubation February 18, 2021. Pepcid 20 mg IV q.12 hours post Claritin 10 mg p.o. daily Diabetes. Will check fingerstick glucose q.a.c. and HS and provides insight skin Hyperlipidemia. Zocor 20 mg p.o. q.h.s. Hypertension. Hydralazine 25 mg p.o. q.8 hours History of right eye cancer, status post radiation therapy, status post enucleation. The patient indicates that she is in remission and no longer requires to be monitored for this medical condition my doctor Grade 2 diastolic dysfunction Bradycardia. She patient asymptomatic. Echocardiogram unremarkable except for grade 2 diastolic dysfunction. Appreciate Cardiology evaluate the patient Constipation. Colace 200 mg p.o. b.i.d. plus senna 17.2 mg p.o. b.i.d. Anemia. Monitor hemoglobin intermittently. Check serum ferritin, iron panel, fecal occult blood Microscopic hematuria. Recheck urinalysis 2 weeks post discharge GI prophylaxis. Pepcid 20 mg IV q.12 hours DVT prophylaxis. Lovenox 40 mg subcutaneously daily Disposition: Pending cardiology's recommendations on this day of February 20, 2021, patient is medically stable for discharge END OF DOCTOR JUANA?S PROGRESS NOTE Subjective Date/time seen: 02/20/21 09:50 Objective Data Vital Signs Vital Signs: Vital Signs - 24 hr 02/19/21 10:00 02/19/21 12:00 02/19/21 12:45 Temperature 97.5 F L Pulse Rate 51 L 42 L 43 L Pulse Rate [With Activity During Therapy Session] Respiratory Rate 15 16 Blood Pressure 147/67 H 144/67 H Pulse Oximetry 99 98 Pulse Oximetry [With Activity During Therapy Session] 02/19/21 14:00 02/19/21 16:00 02/19/21 18:00 Temperature 97.7 F Pulse Rate 59 L 44 L 61 Pulse Rate [With Activity During Therapy Session] Respiratory Rate 15 Blood Pressure 132/82 Pulse Oximetry 99 Pulse Oximetry [With Activity During Therapy Session] 02/19/21 20:00 02/19/21 22:00 02/20/21 00:00 Temperature 97.7 F Pulse Rate 40 L 42 L 42 L Pulse Rate [With Activity During Therapy Session] Respiratory Rate 14 15 Blood Pressure 128/80 138/74 Pulse Oximetry 97 98 Pulse Oximetry [With Activity During Therapy Session] 02/20/21 02:00 02/20/21 04:00 02/20/21 04:08 Temperature 97.7 F Pulse Rate 45 L 43 L 40 L Pulse Rate [With Activity During Therapy Session] Respiratory Rate 16 16 Blood Pressure 144/77 H Pulse Oximetry 97 97 Pulse Oximetry [With Activity During Therapy Session] 02/20/21 05:34 02/20/21 08:25 02/20/21 09:08 Temperature 96.0 F L Pulse Rate 36 L 49 L Pulse Rate [With Activity During Therapy Session] 70 Respiratory Rate 18 Blood Pressure 161/76 H Pulse Oximetry 100 Pulse Oximetry [With Activity During Therapy Session] 96 Intake/Output Intake/Output:
[2021-02-20 10:41] LABS: Iron 104 ug/dL (37-170)
[2021-02-20 10:55] LABS: Percent Iron Saturation 47 % (20-50)
--- NOTE | 2021-02-20 11:54 | PM.PNCARD ---
Progress Note: A&P Assessment and Plan (1) Bradycardia: Code(s): R00.1 - Bradycardia, unspecified Status: Acute Assessment and Plan: Asymptomatic at present but as she ages she may develop more problems with symptomatic bradycardia. Echo showed normal LV function Heart rate increases with activity Okay for discharge today. Recommend follow-up with us periodically (2) Angioedema: Code(s): T78.3XXA - Angioneurotic edema, initial encounter Status: Acute Assessment and Plan: Secondary to lisinopril versus strawberries, required intubation. Resolved. Patient aware she should not take lisinopril or eat strawberries any more. (3) Hypertension: Code(s): I10 - Essential (primary) hypertension Status: Chronic Assessment and Plan: Off all medications now, with systolic blood pressure 128-161. Hydralazine started. Encouraged pt to FU w/ PCP for further BP checks. Subjective Date/time seen: 02/20/21 11:54 Interval history: Follow-up for bradycardia, recent episode of angioedema requiring intubation. Date of service 02/20/2021: Patient is feeling well. Ambulating in halls without problems. Off O2. Telemetry shows heart rate is down in the 50s to 60s, although at night runs 35-45 beats per minute. Review of Systems Constitutional: Constitutional: Denies fatigue and Denies weakness ENT: Denies dysphagia Cardiovascular: Cardiovascular: Denies chest pain, Denies pedal edema, Denies leg edema and Denies lightheadedness Respiratory: Respiratory: Denies dyspnea and Denies dyspnea on exertion Gastrointestinal: Gastrointestinal: Reports no additional gastrointestinal complaints and Denies abdominal pain Exam Const: General: comfortable and no acute distress Neck: Neck: supple Resp: Effort & Inspection: normal respiratory effort Auscultation: clear to auscultation bilaterally Cardio: Rate: regular rate Rhythm: regular rhythm Skin: General skin exam: normal color Neuro: Cognition (Neuro): normal cognition Speech: normal speech Motor exam (neuro): Normal motor muscle tone present throughout Extrem: General: no edema and no pedal edema Psych: Mental Status: mental status grossly normal Objective Data Vital Signs Vital Signs: Vital Signs - 24 hr 02/19/21 12:00 02/19/21 12:45 02/19/21 14:00 Temperature 97.5 F L Pulse Rate 42 L 43 L 59 L Pulse Rate [With Activity During Therapy Session] Respiratory Rate 16 Blood Pressure 144/67 H Pulse Oximetry 98 Pulse Oximetry [With Activity During Therapy Session] 02/19/21 16:00 02/19/21 18:00 02/19/21 20:00 Temperature 97.7 F Pulse Rate 44 L 61 40 L Pulse Rate [With Activity During Therapy Session] Respiratory Rate 15 14 Blood Pressure 132/82 128/80 Pulse Oximetry 99 97 Pulse Oximetry [With Activity During Therapy Session] 02/19/21 22:00 02/20/21 00:00 02/20/21 02:00 Temperature 97.7 F Pulse Rate 42 L 42 L 45 L Pulse Rate [With Activity During Therapy Session] Respiratory Rate 15 Blood Pressure 138/74 Pulse Oximetry 98 Pulse Oximetry [With Activity During Therapy Session] 02/20/21 04:00 02/20/21 04:08 02/20/21 05:34 Temperature 97.7 F Pulse Rate 43 L 40 L 36 L Pulse Rate [With Activity During Therapy Session] Respiratory Rate 16 16 Blood Pressure 144/77 H Pulse Oximetry 97 97 Pulse Oximetry [With Activity During Therapy Session] 02/20/21 08:00 02/20/21 08:25 02/20/21 09:08 Temperature 96.0 F L Pulse Rate 45 L 49 L Pulse Rate [With Activity During Therapy Session] 70 Respiratory Rate 18 Blood Pressure 161/76 H Pulse Oximetry 100 100 Pulse Oximetry [With Activity During Therapy Session] 96 Intake/Output Intake/Output: Intake & Output 02/17/21 02/18/21 02/19/21 02/20/21 23:59 23:59 23:59 23:59 Intake To
--- NOTE | 2021-02-20 13:04 | PM.DS ---
DS: Admitting Diagnosis Discharge Date 1:07 p.m. on February 21, 2020 Admitting Diagnosis Anaphylaxis due to consumption of strawberries with no history of strawberry allergy DS: Summary Hospital Course Hospital Course: See discharge summary below Time Spent with Patient Time attestation: Total time spent providing and/or coordinating discharge services: START OF DOCTOR JUANA?S DISCHARGE SUMMARY Date of Admission: February 16, 2021 Date of Discharge: 1:05 p.m. on February 20, 2021 Primary Diagnosis: Anaphylaxis with pulmonary edema with resultant respiratory failure requiring intubation February 16, 2021, status post extubation February 18, 2021. Patient previously had no allergy to strawberries it appears despite this she consumed some Secondary Diagnosis: Diabetes Hyperlipidemia Hypertension History of right eye cancer, status post enucleation, status post radiation therapy. The patient indicates that she is in remission and no longer requires 3 months for his medical condition by Grade 2 diastolic dysfunction Bradycardia, asymptomatic Constipation Anemia Microscopic hematuria Consultations: Cardiology, trial judge/critical care Disposition: Patient will be advised to follow-up with cardiology as directed The patient is advised follow-up with her primary care physician 7-10 days post discharge. She will need to arrange for urinalysis with micro with microscopy 14 days post discharge for diagnosis of microscopic hematuria Discharge Medications: Lisinopril 40 mg p.o. b.i.d. Metformin 500 mg p.o. b.i.d. K-Dur 10 mEq p.o. daily Triamterene/hydrochlorothiazide: 37.5/25 m tab PO daily Triamcinolone 0.1% cream to be applied to affected area daily Zocor 20 mg p.o. q.h.s. Colace 200 mg p.o. q.12 hours Senna 17.2 mg p.o. q.12 hours END OF DOCTOR JUANA?S DISCHARGE SUMMARY DS: Data Data Completed and Pending Labs on day of discharge: Labs from last 24 hours 02/20/21 02/20/21 02/20/21 09:43 08:25 05:48 POC Capillary Glucose 111 H 124 H Iron 104 TIBC 222 L % Saturation 47 Ferritin 162.00 02/19/21 02/19/21 02/19/21 23:58 17:12 12:44 POC Capillary Glucose 233 H 179 H 173 H Iron TIBC % Saturation Ferritin Discharge Plan Discharge Consulting providers: ; Ester Herron Discharging Clinician: Keyla Paige Patient Disposition: Home, Self-Care Activity: as tolerated Diet: low sodium, low cholesterol and low fat Discharge Instructions: Please follow-up with Dr. Herron at [facility] for your slow heartbeats. This is not bothering you now but it may get worse as you get older. Symptoms of slow heartbeats are things like weakness, dizziness, lightheadedness, passing out, or difficulties and shortness of breath with activity such as walking. [facility]: [phone]. Call if any questions. Address: [address] [place] [address] [address], [address], [place] [address]. Our office is on the ground floor next to the gift shop of the doctor's office building. Enter through the main entrance for COVID screening. Follow-up with cardiology as directed Follow-up with primary care physician in 7-10 days post discharge for post hospitalization evaluation. Patient will need to arrange for repeat urinalysis with microscopy with her primary care physician for diagnosis of microscopic hematuria dysuria 2 weeks post discharge Patient Instructions: Antibiotic Form Stand Alone Forms: General Discharge Information Follow-up/Referrals: Keyla Paige, [Physician] - Discharge Medications: New docusate sodium 100 mg Capsule 200 mg PO Q12HR Qty: 20 RF: 0 sennosides [Senokot] 8.6 mg Tablet 17.2 mg PO Q12H Qty: 20 RF: 0 Continued metformin 500 mg tablet 500 mg PO BID RF: 0 potassium chloride 10 mEq tablet extended rel
[2021-02-20 13:06] LABS: Glucose Point of Care 165 mg/dl (65-105)
[2021-02-20] MEDS: hydrALAZINE HCL 25 MG TABLET PO (13:21)
[2021-02-20] MEDS: SENNOSIDES 8.6 MG TABLET 17.2 MG PO (13:22)
--- NOTE | 2021-02-20 16:00 | PC.NURSE ---
Patient discharged to home at 1500. Education was provided on medication, stopping Lisinopril, and follow-up appointments. Patient and daughter had no further questions at this time.
== END 2021-02-20 15:00 | disposition home or self-care (01) | DRG 915 ==
LOC: ANHICU 02-18 11:03 → ANHIMU 02-20 13:04 → ANHICU 02-23 10:26 → ANHIMU 02-23 10:26
PROVIDERS: Internal Medicine; Nurse Practitioner; Admitting Provider Family Medicine; Visit Provider Internal Medicine
DX: T78.04XA Anaphylactic reaction due to fruits and vegetables, initial encounter (principal); J96.00 Acute respiratory failure, unspecified whether with hypoxia or hypercapnia; X58.XXXA Exposure to other specified factors, initial encounter; R00.1 Bradycardia, unspecified; E11.9 Type 2 diabetes mellitus without complications; E78.5 Hyperlipidemia, unspecified; I10 Essential (primary) hypertension; K59.00 Constipation, unspecified; D64.9 Anemia, unspecified; R31.29 Other microscopic hematuria; Z79.899 Other long term (current) drug therapy; Z85.89 Personal history of malignant neoplasm of other organs and systems; Z90.01 Acquired absence of eye; Z88.8 Allergy status to other drugs, medicaments and biological substances; Z92.3 Personal history of irradiation
CPT/HCPCS: 36415; 36600; 71045; 74018; 80053; 81001; 82375; 82728; 82805; 82948; 83036; 83050; 83540; 83550; 83605; 83735; 84100; 85025; 85027; 92610; 93005; 93306; 94002; 94003; 97162; 97165; A9270; J0360; J1200; J1650; J1815; J1940; J2704; J2920; J2930; J3480; J7030; J7120